=== PATIENT | female | born 1965 | race Caucasian/White ===

== ENCOUNTER 2017-12-14 13:46 | Inpatient (IN) | payer MEDICARE, OTHER ==
[~2017-12-14] VITALS: Ht 165.1 cm; Wt 59.4 kg
[2017-12-14 14:55] LABS: BASOPHILS % (AUTO) 0.3 % (0.0-2.0); EOSINOPHILS % (AUTO) 4.2 % (0.0-6.0); HEMATOCRIT 28 % (33-45); HEMOGLOBIN 8.9 g/dL (11.5-14.8); LYMPHOCYTES # (AUTO) 1.3 /CMM (0.8-4.8); LYMPHOCYTES % (AUTO) 13.5 % (20.0-44.0); MEAN CORPUSCULAR HEMOGLOBIN 30 PG (26.0-33.0); MEAN CORPUSCULAR HGB CONC 32 g/dl (31.0-36.0); MEAN CORPUSCULAR VOLUME 94 fL (82-100); MONOCYTES # (AUTO) 0.9 /CMM (0.1-1.30); MONOCYTES % (AUTO) 9.7 % (2.0-12.0); NEUTROPHILS # (AUTO) 6.8 /CMM (1.8-8.9); NEUTROPHILS % (AUTO) 72.3 % (43.0-81.0); PLATELET COUNT (AUTO) 288 /CMM (150-450); RDW COEFFICIENT OF VARIATION 18.7 (11.5-15.0); RED BLOOD CELL COUNT(AUTO) 2.97 MIL/uL (4.0-5.2); WHITE BLOOD COUNT (AUTO) 9.4 K/uL (4.3-11.0)
[2017-12-14 15:13] LABS: CALCIUM, SERUM 8.8 mg/dL (8.5-10.1)
[2017-12-14 15:24] LABS: MAGNESIUM 2.4 mg/dL (1.8-2.4)
[2017-12-14 15:26] LABS: PHOSPHORUS 13.4 mg/dL (2.5-4.9); POTASSIUM 6.7 mmol/L (3.5-5.1)
[2017-12-14] MEDS ORDERED: SODIUM POLYSTYRENE SULFONATE 15 G/60 ML BOTTLE PO ONE (16:00)
[2017-12-14] MEDS ORDERED: DEXTROSE 50%-WATER 50 ML DISP.SYRIN IV ONE (16:00)
[2017-12-14] MEDS ORDERED: FUROSEMIDE 40 MG/4 ML VIAL IV ONE (16:00)
[2017-12-14] MEDS ORDERED: INSULIN REGULAR, HUMAN 100 UNIT/ML 10 ML VIAL IV ONE (16:00)
[2017-12-14] MEDS ORDERED: SODIUM POLYSTYRENE SULFONATE 15 G/60 ML BOTTLE ONE (16:01)
[2017-12-14] MEDS ORDERED: FUROSEMIDE 20 MG/2 ML VIAL ONE (16:01)
[2017-12-14] MEDS ORDERED: DEXTROSE 50%-WATER 50 ML DISP.SYRIN ONE (16:02)
[2017-12-14] MEDS ORDERED: INSULIN REGULAR, HUMAN 100 UNIT/ML 10 ML VIAL ONE (16:02)
[2017-12-14] MEDS ORDERED: CAPS42.57 TP (17:01)
[2017-12-14] MEDS ORDERED: SODI15OR PO (17:01)
[2017-12-14] MEDS ORDERED: FURO40TA5 PO (17:01)
[2017-12-14] MEDS ORDERED: DOCU250C14 PO (17:01)
[2017-12-14] MEDS ORDERED: LOSA50TA21 PO (17:01)
[2017-12-14] MEDS ORDERED: CALC667C6 PO (17:01)
[2017-12-14] MEDS ORDERED: NUT.237L67 PO (17:01)
[2017-12-14] MEDS ORDERED: CARV12.52 PO (17:01)
[2017-12-14] MEDS ORDERED: SEVE800T8 PO (17:01)
[2017-12-14] MEDS ORDERED: APIX2.5T PO (17:01)
[2017-12-14] MEDS ORDERED: OXYC-128 PO (17:01)
[2017-12-14] MEDS ORDERED: AMLO10TA2 PO (17:01)
[2017-12-14] MEDS ORDERED: CYCL5TAB PO ×2 (17:01)
[2017-12-14] MEDS ORDERED: DARB60VI SQ (17:01)
[2017-12-14] MEDS ORDERED: PANT40TA4 PO (17:01)
[2017-12-14] MEDS ORDERED: SENN-148 PO (17:01)
[2017-12-14] MEDS ORDERED: LEVO25TA7 PO (17:01)
[2017-12-14] MEDS ORDERED: POLY255P2 PO (17:01)
[2017-12-14] MEDS ORDERED: METO50TA16 PO (17:01)
[2017-12-14] MEDS ORDERED: CALC0.253 PO (17:01)
[2017-12-14] MEDS ORDERED: HYDR-4075 PO (17:01)
[2017-12-14] MEDS ORDERED: ACET325T53 PO (17:01)
[2017-12-14] MEDS ORDERED: ACETAMINOPHEN 325 MG TABLET PO PRN (17:30)
[2017-12-14] MEDS ORDERED: DARBEPOETIN ALFA IN POLYSORBAT 60 MCG SQ SCH (17:30)
[2017-12-14] MEDS ORDERED: hydrALAZINE HCL 10 MG TABLET PO PRN (17:30)
[2017-12-14] MEDS: CALCIUM ACETATE 667 MG TABLET PO SCH (17:50)
[2017-12-14] MEDS: oxyCODONE/APAP (5/325 MG) 1 UDTAB TABLET PO PRN (17:51)
[2017-12-14 18:00] VITALS: BP 151/90
[2017-12-14] MEDS ORDERED: METOPROLOL TARTRATE 50 MG TABLET PO SCH (18:00)
[2017-12-14 18:47] VITALS: BP 151/90
[2017-12-14 18:53] VITALS: BP 151/90
[2017-12-14 20:00] VITALS: BP 142/81
[2017-12-14] MEDS: CYCLOBENZAPRINE 10 MG TABLET PO PRN (20:58)
[2017-12-14] MEDS: SODIUM POLYSTYRENE SULFONATE 15 G/60 ML BOTTLE PO SCH (20:58)
[2017-12-14] MEDS: LOSARTAN POTASSIUM 50 MG TABLET PO SCH (20:58)
[2017-12-14] MEDS: APIXABAN 2.5 MG TABLET PO SCH (20:59)
[2017-12-14] MEDS: CAPSAICIN 0.025% CREAM 56.6 GM TUBE TP SCH (20:59)
[2017-12-14] MEDS ORDERED: Medication Not On Formulary EA (Cyclobenzaprine Hcl 10 MG) PO SCH (21:00)
[2017-12-14] MEDS: SENNOSIDES 8.6 MG TABLET PO SCH (21:05)
[2017-12-15] VITALS (7 sets, daily range): BP systolic 137–163; BP diastolic 79–98
[2017-12-15] MEDS: oxyCODONE/APAP (5/325 MG) 1 UDTAB TABLET PO PRN (00:45)
[2017-12-15] MEDS ORDERED: oxyCODONE/APAP (5/325 MG) 1 UDTAB TABLET PO PRN (03:00)
[2017-12-15] MEDS ORDERED: LEVOTHYROXINE SODIUM 25 MCG TABLET PO SCH (07:30)
[2017-12-15] MEDS ORDERED: PANTOPRAZOLE 40 MG TABLET.DR PO SCH (07:30)
[2017-12-15 07:36] LABS: BASOPHILS % (AUTO) 0.3 % (0.0-2.0); EOSINOPHILS % (AUTO) 4.5 % (0.0-6.0); HEMATOCRIT 30 % (33-45); HEMOGLOBIN 9.4 g/dL (11.5-14.8); LYMPHOCYTES # (AUTO) 1.6 /CMM (0.8-4.8); MEAN CORPUSCULAR HEMOGLOBIN 31 PG (26.0-33.0); MEAN CORPUSCULAR HGB CONC 32 g/dl (31.0-36.0); MEAN CORPUSCULAR VOLUME 97 fL (82-100); MONOCYTES # (AUTO) 0.8 /CMM (0.1-1.30); NEUTROPHILS # (AUTO) 6.3 /CMM (1.8-8.9); NEUTROPHILS % (AUTO) 69.2 % (43.0-81.0); PLATELET COUNT (AUTO) 279 /CMM (150-450); RDW COEFFICIENT OF VARIATION 19.6 (11.5-15.0); RED BLOOD CELL COUNT(AUTO) 3.07 MIL/uL (4.0-5.2); WHITE BLOOD COUNT (AUTO) 9.1 K/uL (4.3-11.0)
[2017-12-15 07:45] LABS: CALCIUM, SERUM 8.2 mg/dL (8.5-10.1); POTASSIUM 5.8 mmol/L (3.5-5.1)
[2017-12-15 07:47] LABS: CREATININE 13.8 mg/dL (0.6-1.3)
[2017-12-15] MEDS ORDERED: AMLODIPINE BESYLATE 10 MG TABLET PO SCH (09:00)
[2017-12-15] MEDS ORDERED: DOCUSATE SODIUM 250 MG CAPSULE PO SCH (09:00)
[2017-12-15] MEDS ORDERED: POLYETHYLENE GLYCOL 3350 17 GM POWD.PACK PO SCH (09:00)
[2017-12-15] MEDS ORDERED: SEVELAMER CARBONATE 800 MG TABLET PO SCH (09:00)
[2017-12-15] MEDS ORDERED: CALCITRIOL 0.25 MCG CAPSULE PO SCH (09:00)
[2017-12-15] MEDS: SEVELAMER CARBONATE 800 MG TABLET PO SCH ×3 (09:47→16:20)
[2017-12-15] MEDS: CALCIUM ACETATE 667 MG TABLET PO SCH ×3 (09:49→17:50)
[2017-12-15] MEDS: LOSARTAN POTASSIUM 50 MG TABLET PO SCH ×2 (09:49→21:16)
[2017-12-15] MEDS: CARVEDILOL 12.5 MG TABLET PO SCH ×2 (09:51→16:21)
[2017-12-15] MEDS: FUROSEMIDE 40 MG TABLET PO SCH ×2 (09:52→16:21)
[2017-12-15] MEDS: SODIUM POLYSTYRENE SULFONATE 15 G/60 ML BOTTLE PO SCH ×2 (09:52→21:18)
[2017-12-15] MEDS: NEPRO VAN 237 ML CAN PO SCH ×2 (09:55→17:00)
[2017-12-15] MEDS: CAPSAICIN 0.025% CREAM 56.6 GM TUBE TP SCH ×2 (10:22→21:19)
[2017-12-15] MEDS: APIXABAN 2.5 MG TABLET PO SCH ×2 (10:23→21:17)
[2017-12-15] MEDS ORDERED: VANCOMYCIN 500 MG in IV D5W 100 ML IV PRN (10:30)
[2017-12-15] MEDS ORDERED: VANCOMYCIN 1 GM in IV D5W 250 ML IV ONE (10:30)
[2017-12-15] MEDS ORDERED: KETOROLAC TROMETHAMINE INJ 30 MG/ML VIAL IV PRN (11:30)
[2017-12-15] MEDS: CYCLOBENZAPRINE 10 MG TABLET PO PRN (13:20)
[2017-12-15] MEDS ORDERED: FEE PK DOSING 1 MIN EA MC ONE (13:40)
[2017-12-15] MEDS: ONDANSETRON HCL/PF 4 MG/2 ML VIAL IVP PRN ×2 (14:09→20:10)
[2017-12-15] MEDS: MORPHINE SULFATE INJ 4 MG/ML DISP.SYRIN IV PRN ×2 (14:10→20:09)
[2017-12-15] MEDS ORDERED: LORAZEPAM INJ 2 MG/ML VIAL IV ONE ×2 (17:30→22:00)
[2017-12-15] MEDS ORDERED: SODIUM POLYSTYRENE SULFONATE 15 G/60 ML BOTTLE ONE (21:15)
[2017-12-15] MEDS: SENNOSIDES 8.6 MG TABLET PO SCH (21:17)
== END 2017-12-15 23:10 | disposition short-term general hospital (02) | DRG 640 ==
LOC: ER 13:53 → TELE1 16:20
PROVIDERS: ADMIT Internal Medicine Nephrology; ATTEND Internal Medicine Nephrology
PROC: 3E1M39Z Irrigation of Peritoneal Cavity using Dialysate, Percutaneous Approach (ICD-10-PCS; principal; 2017-12-14)
DX: E87.5 Hyperkalemia (principal); N18.6 End stage renal disease; I12.0 Hypertensive chronic kidney disease with stage 5 chronic kidney disease or end stage renal disease; M46.22 Osteomyelitis of vertebra, cervical region; Q61.3 Polycystic kidney, unspecified; D63.8 Anemia in other chronic diseases classified elsewhere; Z99.2 Dependence on renal dialysis; Z86.718 Personal history of other venous thrombosis and embolism; Z91.15 Patient's noncompliance with renal dialysis; M48.02 Spinal stenosis, cervical region; G89.29 Other chronic pain; Z41.8 Encounter for other procedures for purposes other than remedying health state; M46.42 Discitis, unspecified, cervical region
CPT/HCPCS: 36415; 70490-TC; 70547-TC; 80048-TC; 80202-TC; 83735-TC; 84100-TC; 85025-TC; 87081-TC; 90935-TC; A4606; J1815; J1940; J2060; J2270; J2405; J3370; J7060; Z7610

== ENCOUNTER 2017-12-24 11:52 | Inpatient (IN) | payer MEDICARE, OTHER ==
[~2017-12-24] VITALS: Ht 165.1 cm; Wt 70.3 kg
[~2017-12-24 11:52] MED LIST: ACET325T53 PO; AMLO10TA2 PO; APIX2.5T PO; CALC0.253 PO; CALC667C6 PO; CAPS42.57 TP; CARV12.52 PO; CYCL5TAB PO; DARB60VI SQ; DOCU250C14 PO; FURO40TA5 PO; HYDR-4075 PO; LEVO25TA7 PO; LOSA50TA21 PO; NUT.237L67 PO; OXYC-128 PO; PANT40TA4 PO; POLY255P2 PO; SENN-148 PO; SEVE800T8 PO; SODI15OR PO
[2017-12-24 16:30] VITALS: BP 122/83
--- NOTE | 2017-12-24 16:30 | NUR ---
ADMISSION NOTES PT RECEIVED VIA GURNEY FROM [facility], STATUS POST CERVICAL LAMINECTOMY, A/O X4, BREATHING IS EVEN AND UNLABORED, NO S/S OF PAIN OR DISTRESS, PT IS AMBULATORY, HAS NECK IMMOBILIZER, LEFT FEMORAL PICC LINE INTACT AND PATENT WITH NO REDNESS OR INFILTRATION, WILL MAKE DR. PAVON AWARE OF PATIENT'S ARRIVAL, MED [facility] NURSE AWARE, WILL CONTINUE TO CARRY OUT ADMISSION ORDERS AND MONITOR.
[2017-12-24] MEDS ORDERED: ONDA4VIA30 IVP (17:16)
[2017-12-24] MEDS ORDERED: HYDR-548 PO (17:16)
[2017-12-24] MEDS ORDERED: CLON0.1T PO (17:16)
[2017-12-24] MEDS ORDERED: HYDR100T27 PO (17:16)
[2017-12-24] MEDS ORDERED: CEFT2VIA5 IV (17:16)
[2017-12-24] MEDS ORDERED: HYDR-552 PO (17:16)
[2017-12-24] MEDS ORDERED: VANC1VIA2 IV (17:16)
[2017-12-24] MEDS ORDERED: IV NS 0.9% 1,000 ML IV PRN (17:46)
[2017-12-24] MEDS ORDERED: HYDROCODONE/APAP 5/325MG 1 EACH TABLET PO PRN ×2 (18:00)
[2017-12-24] MEDS ORDERED: VANCOMYCIN 1 GM VIAL IV SCH (18:00)
[2017-12-24] MEDS ORDERED: HYDROCODONE/APAP 10/325MG 1 EA TABLET PO PRN (18:00)
[2017-12-24] MEDS ORDERED: ZOLPIDEM TARTRATE 5 MG TABLET PO PRN (18:00)
[2017-12-24] MEDS ORDERED: MAG HYDROX/AL HYDROX/SIMETH 30 ML UDC PO PRN (18:00)
[2017-12-24] MEDS ORDERED: MAGNESIUM HYDROXIDE 30 ML UDC PO PRN (18:00)
[2017-12-24] MEDS ORDERED: CLONIDINE HCL 0.1 MG TABLET PO PRN (18:00)
[2017-12-24] MEDS ORDERED: ONDANSETRON HCL/PF 4 MG/2 ML VIAL IVP PRN ×2 (18:00)
[2017-12-24] MEDS: CALCIUM ACETATE 667 MG TABLET PO SCH (18:00)
[2017-12-24] MEDS ORDERED: ACETAMINOPHEN 325 MG TABLET PO PRN ×2 (18:00)
[2017-12-24] MEDS ORDERED: Z GUARD REMEDY 2 OZ OINT TP PRN (18:00)
[2017-12-24 18:30] LABS: HEMATOCRIT 26 % (33-45); HEMOGLOBIN 8.2 g/dL (11.5-14.8); LYMPHOCYTES # (AUTO) 1.4 /CMM (0.8-4.8); LYMPHOCYTES % (AUTO) 9.5 % (20.0-44.0); MEAN CORPUSCULAR HEMOGLOBIN 31 PG (26.0-33.0); MEAN CORPUSCULAR HGB CONC 32 g/dl (31.0-36.0); MEAN CORPUSCULAR VOLUME 96 fL (82-100); MONOCYTES # (AUTO) 1.5 /CMM (0.1-1.30); MONOCYTES % (AUTO) 9.9 % (2.0-12.0); NEUTROPHILS # (AUTO) 11.7 /CMM (1.8-8.9); NEUTROPHILS % (AUTO) 79.6 % (43.0-81.0); PLATELET COUNT (AUTO) 338 /CMM (150-450); RDW COEFFICIENT OF VARIATION 18.1 (11.5-15.0); RED BLOOD CELL COUNT(AUTO) 2.67 MIL/uL (4.0-5.2); WHITE BLOOD COUNT (AUTO) 14.7 K/uL (4.3-11.0)
[2017-12-24 18:42] LABS: ALANINE AMINOTRANSFERASE < 6 U/L (12-78); ALBUMIN 2.2 g/dL (3.4-5.0); ALKALINE PHOSPHATASE 85 U/L (46-116); ASPARTATE AMINOTRANSFERASE 16 U/L (15-37); BILIRUBIN,TOTAL 0.3 mg/dL (0.2-1.0); CALCIUM, SERUM 8.7 mg/dL (8.5-10.1); CARBON DIOXIDE 29 mmol/L (21-32); CHLORIDE 96 mmol/L (98-107); GLUCOSE 88 mg/dL (74-106); POTASSIUM 4.4 mmol/L (3.5-5.1); SODIUM SERUM 136 mmol/L (136-145); TOTAL PROTEIN, SERUM 6.2 g/dL (6.4-8.2); UREA NITROGEN, BLOOD 57 mg/dL (7-18)
[2017-12-24 18:46] LABS: CREATININE 8.7 mg/dL (0.6-1.3)
--- NOTE | 2017-12-24 18:46 | NUR ---
RN NOTES/ID SEEN AND EXAMINED BY VIVIEN FROM ID, PER VIVIEN PLEASE CALL IDA K[facility] TO OBTAIN CULTURE RESULTS, WILL CONTINUE TO MONITOR
--- NOTE | 2017-12-24 18:48 | NUR ---
RN NOTES/CRITICAL LAB MADE DR. PAVON AWARE OF CREATININE LEVEL 8.7 AND CURRENT MEDICATION RECON, DR. PAVON WITH NEW ORDERS WILL CONTINUE TO CARRY OUT ADMITTING ORDERS
--- NOTE | 2017-12-24 18:55 | NUR ---
RN CLOSING NOTES PT AWAKE ALERT AND VERBALLY RESPONSIVE, STATUS POST CERVICAL LAMINECTOMY, A/O X4, RESPIRATIONS EVEN AND UNLABORED, NO S/S OF PAIN OR DISTRESS, PT IS AMBULATORY, HAS NECK IMMOBILIZER, LEFT FEMORAL PICC LINE INTACT AND PATENT WITH NO REDNESS OR INFILTRATION, RUNNING NS ORDERED TOLERATED WELL. WILL CONTINUE TO CARRY OUT ADMISSION ORDERS AND MONITOR.ORIENTED TO ROOM AND UNIT, CALL LIGHT WITHIN EASY REACH,WILL CONTINUE TO MONITOR AND ENDORSE TO NEXT SHIFT FOR CONTINUITY OF CARE
--- NOTE | 2017-12-24 19:19 | NUR ---
RN NOTES ENDORSED TO NEXT SHIFT, FOR FEMORAL PICC LINE DRESSING CHANGE AND MRSA SWAB FOR CONTINUITY OF CARE
--- NOTE | 2017-12-24 19:21 | NUR ---
ASTRONAUT [facility] SPECIALIST OPENING NOTE RECEIVE PATIENT AWAKE IN BED, A/O X 3, NO SOB OR DISTRESS NOTED, CALL LIGHT WITHIN REACH. SAFETY MEASURES IMPLEMENTED. WILL CONTINUE TO MONITOR THROUGHOUT SHIFT.
[2017-12-24 20:00] VITALS: BP 106/73
[2017-12-24] MEDS: LOSARTAN POTASSIUM 50 MG TABLET PO SCH (20:19)
[2017-12-24] MEDS: CEFTRIAXONE 1 G in IV D5W 50 ML IV SCH (20:23)
[2017-12-24] MEDS: APIXABAN 2.5 MG TABLET PO SCH (20:23)
[2017-12-24] MEDS: POLYETHYLENE GLYCOL 3350 17 GM POWD.PACK PO SCH (20:23)
[2017-12-24] MEDS ORDERED: VANCOMYCIN 1 GM in IV D5W 250 ML IV ONE (21:00)
[2017-12-24] MEDS: SENNOSIDES 8.6 MG TABLET PO SCH (21:13)
--- NOTE | 2017-12-24 21:30 | NUR ---
CHANNEL MACHINE OPERATOR NOTES CHANGED DRESSING TO THE L FEMORAL PICC STERILE TECHNIQUE TOLERATED WELL.
[2017-12-25] VITALS: BP 130/87
--- NOTE | 2017-12-25 00:08 | NUR ---
TELE NOTES PAGED HOSPITALIST SPOKE TO ARAVIND GRANT RELAYED PT REQUESTING IS SHE COULD HAVE MORPHINE IVP PER PT SHE DOESN'T GET ANY RELIEF WITH NORCO, PER ARAVIND ORDERED TO DC NORCO 10/325MG PO AND CHANGE TO MORPHINE 4 MG IVP Q6 PRN READ BACK AND VERIFIED ORDERS NOTED AND CARRIED OUT
[2017-12-25] MEDS: MORPHINE SULFATE INJ 4 MG/ML DISP.SYRIN IV PRN ×2 (00:17→06:20)
--- NOTE | 2017-12-25 00:25 | NUR ---
MS RN NOTES UPON ADMINISTERING PAIN MEDICATION TO THE PT, PT SUDDENLY CHANGED MIND PER PT SHE'S NOT IN PAIN ANYMORE PT WANTS ME TO RE-DO HANDWASHING AGAIN IN HER WAY OF STYLE. PT BECAME AGGRESSIVE AND WANTS NOT TO BE BOTHERED ANYMORE. CHARGE NURSE AWARE
[2017-12-25 04:00] VITALS: BP 142/85
--- NOTE | 2017-12-25 06:11 | NUR ---
MS RN CLOSING NOTES PT AWAKE IN BED, STABLE, TOLERATING ROOM AIR 98%, NOT IN DISTRESS. RESPIRATION EVEN AND UNLABORED. KEPT CLEAN AND DRY AND COMFORTABLE, ALL NURSING CARE RENDERED. NEEDS ATTENDED AND ANTICIPATED. ON LOW BED AT ALL TIMES TO ENSURE SAFETY. SAFE HAZARD FREE ENVIRONMENT PROVIDED. CALL LIGHT WITHIN EASY TO REACH. WILL ENDORSE NEXT SHIFT CONTINUITY OF CARE. Addendum: 12/25/17 at 0612 by ROB TORRES RN 94'S
[2017-12-25 06:34] LABS: BASOPHILS % (AUTO) 0.2 % (0.0-2.0); EOSINOPHILS % (AUTO) 2.4 % (0.0-6.0); HEMATOCRIT 29 % (33-45); HEMOGLOBIN 9.1 g/dL (11.5-14.8); LYMPHOCYTES # (AUTO) 1.6 /CMM (0.8-4.8); LYMPHOCYTES % (AUTO) 12.2 % (20.0-44.0); MEAN CORPUSCULAR HEMOGLOBIN 31 PG (26.0-33.0); MEAN CORPUSCULAR HGB CONC 32 g/dl (31.0-36.0); MEAN CORPUSCULAR VOLUME 96 fL (82-100); MONOCYTES # (AUTO) 1.5 /CMM (0.1-1.30); NEUTROPHILS # (AUTO) 9.8 /CMM (1.8-8.9); NEUTROPHILS % (AUTO) 74.2 % (43.0-81.0); PLATELET COUNT (AUTO) 376 /CMM (150-450); RDW COEFFICIENT OF VARIATION 18.4 (11.5-15.0); RED BLOOD CELL COUNT(AUTO) 2.97 MIL/uL (4.0-5.2); WHITE BLOOD COUNT (AUTO) 13.3 K/uL (4.3-11.0)
[2017-12-25 06:43] LABS: CALCIUM, SERUM 8.8 mg/dL (8.5-10.1); MAGNESIUM 1.9 mg/dL (1.8-2.4); PHOSPHORUS 6.7 mg/dL (2.5-4.9); POTASSIUM 4.4 mmol/L (3.5-5.1)
[2017-12-25 06:44] LABS: CREATININE 8.9 mg/dL (0.6-1.3)
--- NOTE | 2017-12-25 07:25 | NUR ---
RN OPENING NOTES PT AWAKE ALERT AND VERBALLY RESPONSIVE, STATUS POST CERVICAL LAMINECTOMY, A/O X4, RESPIRATIONS EVEN AND UNLABORED, NO S/S OF PAIN OR DISTRESS, PT IS AMBULATORY, HAS NECK IMMOBILIZER, LEFT FEMORAL PICC LINE INTACT AND PATENT WITH NO REDNESS OR INFILTRATION, RUNNING NS ORDERED TOLERATED WELL. CALL LIGHT WITHIN EASY REACH,WILL CONTINUE TO MONITOR
[2017-12-25] MEDS: PANTOPRAZOLE 40 MG TABLET.DR PO SCH (07:30)
[2017-12-25] MEDS: LEVOTHYROXINE SODIUM 25 MCG TABLET PO SCH (07:30)
[2017-12-25 08:00] VITALS: BP 134/77
--- NOTE | 2017-12-25 08:15 | NUR ---
RN NOTES OFFERED ROUTINE MEDICATIONS TO PATIENT, PATIENT STATING" I NEED SOMETHING FOR MY THROAT, I HAVE BEEN WAITING, YOU HAVE NOT GOT IT" RELAYED TO PATIENT WILL OBTAIN PRN ORDERS NO ORDERS AT THIS TIME. PATIENT CONTINUES AND ASKS TO SPEAK TO DOCTOR AND FOLDING MACHINE FEEDER, INFORMED PT THAT NURSE WILL COMMUNICATE WITH INTERDISCIPLINARY TEAM. PATIENT NOTED CRYING AND CONTINUES TO STATE 'I NEED SOMETHING FOR MY THROAT, I HAVE BEEN WAITING, YOU HAVE NOT GOT IT" WILL CONTINUE TO MONITOR, ASSIST AND COMMUNICATE WITH IDT FOR CONTINUITY OF CARE
[2017-12-25] MEDS: CARVEDILOL 12.5 MG TABLET PO SCH ×2 (09:00→18:05)
[2017-12-25] MEDS: FUROSEMIDE 40 MG TABLET PO SCH ×2 (09:00→18:04)
[2017-12-25] MEDS: AMLODIPINE BESYLATE 10 MG TABLET PO SCH (09:00)
[2017-12-25] MEDS: POLYETHYLENE GLYCOL 3350 17 GM POWD.PACK PO SCH (09:00)
[2017-12-25] MEDS: SEVELAMER CARBONATE 800 MG TABLET PO SCH ×3 (09:00→17:00)
[2017-12-25] MEDS: CYCLOBENZAPRINE 10 MG TABLET PO SCH ×3 (09:00→18:04)
[2017-12-25] MEDS: CALCITRIOL 0.25 MCG CAPSULE PO SCH (09:00)
[2017-12-25] MEDS: DOCUSATE SODIUM 250 MG CAPSULE PO SCH (09:00)
[2017-12-25] MEDS: LOSARTAN POTASSIUM 50 MG TABLET PO SCH ×2 (09:00→21:08)
[2017-12-25] MEDS ORDERED: Medication Not On Formulary EA (Cyclobenzaprine Hcl 10 MG) PO SCH (09:00)
[2017-12-25] MEDS: hydrALAZINE HCL 50 MG TABLET PO SCH ×3 (09:00→18:05)
[2017-12-25] MEDS ORDERED: Medication Not On Formulary EA (Ceftriaxone Sodium (Ceftriaxone) 2 GM) IV SCH (09:00)
[2017-12-25] MEDS: APIXABAN 2.5 MG TABLET PO SCH ×2 (09:00→21:08)
[2017-12-25] MEDS: CALCIUM ACETATE 667 MG TABLET PO SCH ×3 (09:00→18:05)
[2017-12-25] MEDS: MENTHOL/CETYLPYRD (CEPACOL) 1 LOZ LOZENGE PO PRN (10:07)
--- NOTE | 2017-12-25 10:20 | NUR ---
RN NOTES/ REFUSAL OF MEDICATIONS OBTAINED ORDER FOR DILAUDID AND THROAT LOZENGES. OFFERED X5 ALL ROUTINE MEDICATIONS ORDERED BY MD EXPLAINED RISKS OF NOT TAKING MEDICATIONS PT CONTINUES TO REFUSE AND STATE " YOU ARE NOT HELPING, I NEED TO GET OUT OF HERE, IM GOING TO LEAVE AMA, THE DOCTOR NEEDS TO COME TALK TO ME THIS IS NOT RIGHT" PT WITH AGITATION AND REFUSING MEDICATIONS, RELAYED TO MD AND MADE MD AWARE, WILL MAKE ROUNDS
--- NOTE | 2017-12-25 11:41 | NUR ---
RN NOTES RELAYED PATIENTS STATUS AND REFUSAL OF MEDICATIONS TO DR. SANTIAGO DE LEON WILL ASSESS AND TALK TO PT. ATTEMPTED TO REVIEW AND ASK PT ABOUT NON FORMULARY MEDS REQUESTED BY PHARMACY AND PT REFUSES TO RELAY INFORMATION
[2017-12-25] MEDS ORDERED: BISACODYL (5 MG) 5 MG TABLET.DR PO PRN (13:00)
[2017-12-25] MEDS ORDERED: HYDROCODONE/APAP 10/325MG 1 EA TABLET PO PRN (13:00)
--- NOTE | 2017-12-25 13:17 | NUR ---
RN NOTES/ PT NON COMPLIANT RN IN ROOM TO TAKE BLOOD PRESSURE AND ASSESS PT, PT CONTINUES TO STATE "NO ONE IS LEAVING, I AM GOING TO LEAVE MY SON WILL PICK ME UP, NO ONE IS LISTENING, THIS IS NOT WHAT I NEED" DR. HENDERSON IN UNIT, RN RELAYED INFORMATION TO DR. HENDERSON, PER MD PT MAY LEAVE AMA IF PERSISTS, PT REFUSING ALL MEDICATIONS, MEALS AND BP TO BE TAKEN REPEATS SAME STATEMENTS WILL CONTINUE TO ASSIST AND MONITOR
[2017-12-25] MEDS: oxyCODONE HCL SR 20MG TAB.SR.12H PO SCH (14:10)
--- NOTE | 2017-12-25 15:27 | NUR ---
RN NOTES PT REFUSING MEDICATION EXPLAINED RISKS AND BENEFIT OF MEDICATIONS MD AWARE WILL CONTINUE TO MONITOR
[2017-12-25 15:29] VITALS: BP 153/80
--- NOTE | 2017-12-25 18:25 | NUR ---
RN NOTES/PERITONEAL DIALYSIS PT STARTED OWN PERITONEAL DIALYSIS AT 1825 NO S/S OF DISTRESS NOTED, HD NURSE ASSISTED WITH SUPPLIES, WILL ENDORSE TO NEXT SHIFT FOR CONTINUITY OF CARE AND REASSESSMENT
--- NOTE | 2017-12-25 18:52 | NUR ---
RN NOTES PATIENT WITH COMPLAINT OF DIFFICULTY SWALLOWING, REPORTS PAIN WHEN SWALLOWING PT S/P LAMINECTOMY TO HAVE ST EVAL, THICKENER USED FOR FLUIDS OFFERED SNACKS AND ADMINISTERED MEDICATIONS, WILL CONTINUE TO MONITOR AND ASSESS
--- NOTE | 2017-12-25 18:54 | NUR ---
RN CLOSING NOTES PT AWAKE ALERT AND VERBALLY RESPONSIVE, STATUS POST CERVICAL LAMINECTOMY, A/O X4, RESPIRATIONS EVEN AND UNLABORED, NO S/S OF PAIN OR DISTRESS, PT IS AMBULATORY, HAS NECK IMMOBILIZER, LEFT FEMORAL PICC LINE INTACT AND PATENT WITH NO REDNESS OR INFILTRATION. CALL LIGHT WITHIN EASY REACH,WILL CONTINUE TO MONITOR. PT CURRENTLY DOING OWN PERITONEAL DIALYSIS WILL ENDORSE TO NEXT SHIFT FOR CONTINUITY OF CARE AND REASSESSMENT
--- NOTE | 2017-12-25 19:10 | NUR ---
MS DEL ROSARIO INITIAL NOTES Received patient sitting on bed with peritoneal dialysis on going. self administered by the patient. No s/s of discomfort noted. Neck immobilizer placed properly. PICC line L femoral patent, dressing intact, clean and dry, no s/s of infection noted. A/O x4, ambulatory independently. Will monitor accordingly.
[2017-12-25] MEDS: CEFTRIAXONE 1 G in IV D5W 50 ML IV SCH (19:34)
--- NOTE | 2017-12-25 19:45 | NUR ---
MS RN NOTES Patient done with her peritoneal dialysis. Attached IVF NS 75ml/hr as ordered. Strictly observed sterile technique. Administered due IV ATB. Patient remained comfortably sitting on bed doing kallie.
[2017-12-25 20:00] VITALS: BP 131/78
--- NOTE | 2017-12-25 20:15 | NUR ---
MS RN NOTES Current IV ATB done. DC IVF. No ASE noted at this time. Will continue to monitor.
--- NOTE | 2017-12-25 20:20 | NUR ---
MS RN NOTES exhibit technician came in to draw blood sample for ordered test. Offered options to patient: to draw blood through PICC line or the lab courier will draw blood through needle. Patient chose the latter. Tolerated the procedure well.
[2017-12-25] MEDS: SENNOSIDES 8.6 MG TABLET PO SCH (21:08)
[2017-12-25] MEDS: HYDROMORPHONE INJ 2 MG/ML DISP.SYRIN IV PRN (22:27)
[2017-12-26] MEDS: oxyCODONE HCL SR 20MG TAB.SR.12H PO SCH ×3 (01:39→15:30)
--- NOTE | 2017-12-26 06:35 | NUR ---
MS RN CLOSING NOTES Patient asleep on right side lying position. L femoral PICC line patent, SL, with clean, dry, intact dressing. Patient had peritoneal dialysis by herself, infuse 200ML, output 1800ML clear, jose ramon fluid. Observed strict sterile technique in all procedures done to patient. All due meds given, all needs attended. Medicated for pain as ordered. Afebrile the whole shift, no new complaints made. Endorsed to the next shift.
[2017-12-26 07:13] LABS: BASOPHILS % (AUTO) 0.3 % (0.0-2.0); EOSINOPHILS % (AUTO) 2.1 % (0.0-6.0); HEMATOCRIT 27 % (33-45); HEMOGLOBIN 8.8 g/dL (11.5-14.8); LYMPHOCYTES # (AUTO) 1.6 /CMM (0.8-4.8); LYMPHOCYTES % (AUTO) 14.6 % (20.0-44.0); MEAN CORPUSCULAR HEMOGLOBIN 31 PG (26.0-33.0); MEAN CORPUSCULAR HGB CONC 32 g/dl (31.0-36.0); MEAN CORPUSCULAR VOLUME 95 fL (82-100); MONOCYTES # (AUTO) 1.3 /CMM (0.1-1.30); MONOCYTES % (AUTO) 11.7 % (2.0-12.0); NEUTROPHILS # (AUTO) 7.8 /CMM (1.8-8.9); NEUTROPHILS % (AUTO) 71.3 % (43.0-81.0); PLATELET COUNT (AUTO) 368 /CMM (150-450); RDW COEFFICIENT OF VARIATION 17.4 (11.5-15.0); RED BLOOD CELL COUNT(AUTO) 2.86 MIL/uL (4.0-5.2)
[2017-12-26 07:29] LABS: CALCIUM, SERUM 8.8 mg/dL (8.5-10.1); CREATININE 10.5 mg/dL (0.6-1.3); PHOSPHORUS 7.6 mg/dL (2.5-4.9); POTASSIUM 4.4 mmol/L (3.5-5.1)
[2017-12-26] MEDS: PANTOPRAZOLE 40 MG TABLET.DR PO SCH (07:30)
[2017-12-26] MEDS: LEVOTHYROXINE SODIUM 25 MCG TABLET PO SCH (07:30)
[2017-12-26 08:00] VITALS: BP 156/87
[2017-12-26] MEDS: CARVEDILOL 12.5 MG TABLET PO SCH ×2 (09:00→17:00)
[2017-12-26] MEDS: POLYETHYLENE GLYCOL 3350 17 GM POWD.PACK PO SCH (09:00)
[2017-12-26] MEDS: hydrALAZINE HCL 50 MG TABLET PO SCH ×3 (09:12→17:00)
[2017-12-26] MEDS: CYCLOBENZAPRINE 10 MG TABLET PO SCH ×3 (09:13→17:35)
[2017-12-26] MEDS: FUROSEMIDE 40 MG TABLET PO SCH ×2 (09:13→17:39)
[2017-12-26] MEDS: LOSARTAN POTASSIUM 50 MG TABLET PO SCH ×2 (09:13→21:42)
[2017-12-26] MEDS: AMLODIPINE BESYLATE 10 MG TABLET PO SCH (09:13)
[2017-12-26] MEDS: SEVELAMER CARBONATE 800 MG TABLET PO SCH (09:13)
[2017-12-26] MEDS: DOCUSATE SODIUM 250 MG CAPSULE PO SCH (09:13)
[2017-12-26] MEDS: CALCIUM ACETATE 667 MG TABLET PO SCH ×3 (09:13→17:35)
[2017-12-26] MEDS: APIXABAN 2.5 MG TABLET PO SCH ×2 (09:14→21:42)
[2017-12-26] MEDS: CALCITRIOL 0.25 MCG CAPSULE PO SCH (09:14)
[2017-12-26] MEDS: MENTHOL/CETYLPYRD (CEPACOL) 1 LOZ LOZENGE PO PRN ×2 (09:15→15:30)
--- NOTE | 2017-12-26 10:09 | NUR ---
Social service consult requested by Med Surg BRISEIAD Jimenez for possible homelessness. Pt. is a 52 year old female who was admitted to [facility] for End Stage Renal Disease. SW met with pt. bedside. Pt. is alert and oriented x 4. Pt. is well groomed and cooperative with SW during the assessment. Pt. does not give eye contact while answering the questions. Pt. states she resides at [facility] located at [address] [place] [address] and would like to be discharged back there since her belongings are there as well. Pt. states she has been in and out of hospitals for the past six months. Pt. recently had cervical spine surgery at [facility]. Pt. is on perithelial dialysis. Her son Zeus is her emergency contact and can be reached at . Pt. does not want her son to be contacted at this time. Pt. denies drug and alcohol use. Pt. denies any psychiatric history or diagnosis. No other social service needs are requested at this time. SW is available if needed. WOODY updated CARIN Jason regarding pt's discharge plan.
[2017-12-26] MEDS ORDERED: EPOETIN ALFA (10,000 UNIT) 10,000 UNIT/ML VIAL SQ ONE (13:30)
[2017-12-26] MEDS: SEVELAMER CARBONATE 0.8 GM POWD.PACK GT SCH ×2 (13:36→17:35)
[2017-12-26] MEDS ORDERED: FEE PK DOSING 1 MIN EA MC ONE (13:53)
[2017-12-26] MEDS ORDERED: VANCOMYCIN 500 MG in IV D5W 100 ML IV PRN (14:30)
[2017-12-26 16:00] VITALS: BP 128/68
[2017-12-26] MEDS: LACTOBACILLUS RHAMNOSUS GG 1 EACH CAP.SPRINK PO SCH (17:35)
[2017-12-26] MEDS ORDERED: DARBEPOETIN ALFA IN POLYSORBAT 60 MCG SQ SCH (18:00)
--- NOTE | 2017-12-26 18:26 | NUR ---
RN CLOSING NOTES PT AWAKE ALERT AND VERBALLY RESPONSIVE, STATUS POST CERVICAL LAMINECTOMY, A/O X4, RESPIRATIONS EVEN AND UNLABORED, NO S/S OF PAIN OR DISTRESS, PT IS AMBULATORY, HAS NECK IMMOBILIZER, LEFT FEMORAL PICC LINE INTACT AND PATENT WITH NO REDNESS OR INFILTRATION, RUNNING NS ORDERED TOLERATED WELL. CALL LIGHT WITHIN EASY REACH,WILL CONTINUE TO MONITOR AND ENDORSE TO NEXT SHIFT FOR CONTINUITY OF CARE, PT PERFORMED OWN PERITONEAL DIALYSIS SUPPLIES WERE PROVIDED , STILL ONGOING WILL ENDORSE TO NEXT SHIFT FOR FURTHER ASSESSMENT
--- NOTE | 2017-12-26 19:15 | NUR ---
rn ms opening notes received patient in room walking , awake alert and oriented x4, noted patient has stopped performing own peritoneal dialysis and per patient is done at this time noted bag of 1500ml , 300 ml left in bag total input 1200. output noted 1700 clear yellow color. per patient will perform one more treatment of peritoneal dialysis at 10pm. will continue to monitor. patient is ambulatory noted with s/p laminectomy incisions on posterior neck and right side of anterior neck. posterior neck noted dry, no drainage at this time and anterior neck incision noted with clean and dry intact steri strips with dressing, noted with left femoral picc line with 2 lumens. dressing remains intact, able to flush patent, no redness , no irritation present. oriented to staff and call light, safety precautions in place, low bed and locked,patient stated she was hungry, snack provided, jello,pudding and apple sauce given, all needs attended at this time will continue to monitor. unable to given atb this time enma continue to monitor when patient in bed.
[2017-12-26 20:00] VITALS: BP 126/96
[2017-12-26] MEDS: HYDROMORPHONE INJ 2 MG/ML DISP.SYRIN IV PRN (20:26)
--- NOTE | 2017-12-26 20:26 | NUR ---
rn ms notes patient complaint of pain 10/10 generalized. requesting for dilaudid. vital signs assessed noted within normal range 126/96,87,18,97.6,99% RA. dilaudid prn given will continue to monitor effectiveness.
[2017-12-26] MEDS: CEFTRIAXONE 1 G in IV D5W 50 ML IV SCH (21:28)
--- NOTE | 2017-12-26 21:28 | NUR ---
rn notes noted patient is calm in bed at this time, made aware of iv antibiotic, will give as ordered now.
[2017-12-26] MEDS: SENNOSIDES 8.6 MG TABLET PO SCH (21:42)
--- NOTE | 2017-12-26 22:00 | NUR ---
rn ms notes patient did not perform Peritoneal dialysis wants to sleep at this time.
[2017-12-27] MEDS: oxyCODONE HCL SR 20MG TAB.SR.12H PO SCH ×2 (02:57→14:35)
--- NOTE | 2017-12-27 02:57 | NUR ---
rn ms notes vital signs assessed prior to administration of oxycontin noted wnl 119/75,97,18,99% ra
--- NOTE | 2017-12-27 03:35 | NUR ---
rn ms notes patient complaint of indigestion feeling heart burn maalox offered prn given as ordered will continue to monitor.
[2017-12-27 06:28] LABS: BASOPHILS % (AUTO) 0.2 % (0.0-2.0); EOSINOPHILS % (AUTO) 2.4 % (0.0-6.0); HEMATOCRIT 29 % (33-45); HEMOGLOBIN 9.1 g/dL (11.5-14.8); LYMPHOCYTES # (AUTO) 1.4 /CMM (0.8-4.8); LYMPHOCYTES % (AUTO) 10.8 % (20.0-44.0); MEAN CORPUSCULAR HEMOGLOBIN 31 PG (26.0-33.0); MEAN CORPUSCULAR HGB CONC 32 g/dl (31.0-36.0); MEAN CORPUSCULAR VOLUME 96 fL (82-100); MONOCYTES # (AUTO) 1.4 /CMM (0.1-1.30); MONOCYTES % (AUTO) 10.9 % (2.0-12.0); NEUTROPHILS # (AUTO) 9.6 /CMM (1.8-8.9); NEUTROPHILS % (AUTO) 75.7 % (43.0-81.0); PLATELET COUNT (AUTO) 393 /CMM (150-450); RDW COEFFICIENT OF VARIATION 17.7 (11.5-15.0); RED BLOOD CELL COUNT(AUTO) 2.97 MIL/uL (4.0-5.2); WHITE BLOOD COUNT (AUTO) 12.7 K/uL (4.3-11.0)
[2017-12-27 06:38] LABS: CALCIUM, SERUM 9.6 mg/dL (8.5-10.1); PHOSPHORUS 7.5 mg/dL (2.5-4.9); POTASSIUM 4.8 mmol/L (3.5-5.1)
[2017-12-27 06:46] LABS: CREATININE 10.2 mg/dL (0.6-1.3)
--- NOTE | 2017-12-27 07:10 | NUR ---
RN MS CLOSING NOTES PATIENT IN ROOM AWAKE, ALERT AND ORIENTED X 4 , ABLE TO MAKE NEEDS KNOWN, DENIES ANY PAIN OR DISCOMFORT AT THIS TIME, RESPIRATIONS EVEN AND UNLABORED WITH EQUAL RISE AND FALL OF CHEST, PATIENT IS AMBULATORY. ALL NEEDS ATTENDED AT THIS TIME, DRESSING TO S/P SURGICAL SITE CLEAN AND INTACT. SAFETY PRECAUTIONS IN PLACE CALL LIGHT KEPT WITHIN REACH, ALL NEEDS ATTENDED NO CHANGES THROUGHOUT SHIFT. NEEDS WILL CONTINUE TO MONITOR AND ENDORSE TO NEXT SHIFT.
--- NOTE | 2017-12-27 07:30 | NUR ---
RN MS NOTES PT AWAKE, WALKING INSIDE HER ROOM, ALERT AND ABLE TO MAKE NEEDS KNOWN, NO COMPLAINT OF PAIN, RESPIRATIONS NORMAL, REQUESTING FOR A FRUIT CUP, EXPLAINED TO PT OF THE RISK FOR ASPIRATION, VERBALIZED UNDERSTANDING, CALL LIGHT WITHIN REACH, NEEDS ATTENDED.
[2017-12-27 08:05] VITALS: BP 134/94
[2017-12-27] MEDS: DOCUSATE SODIUM 250 MG CAPSULE PO SCH (08:26)
[2017-12-27] MEDS: SEVELAMER CARBONATE 0.8 GM POWD.PACK GT SCH ×3 (08:26→17:10)
[2017-12-27] MEDS: CARVEDILOL 12.5 MG TABLET PO SCH ×2 (08:27→17:07)
[2017-12-27] MEDS: CYCLOBENZAPRINE 10 MG TABLET PO SCH ×3 (08:27→17:07)
[2017-12-27] MEDS: PANTOPRAZOLE 40 MG TABLET.DR PO SCH (08:27)
[2017-12-27] MEDS: LACTOBACILLUS RHAMNOSUS GG 1 EACH CAP.SPRINK PO SCH ×2 (08:27→17:07)
[2017-12-27] MEDS: LEVOTHYROXINE SODIUM 25 MCG TABLET PO SCH (08:27)
[2017-12-27] MEDS: FUROSEMIDE 40 MG TABLET PO SCH ×2 (08:27→17:07)
[2017-12-27] MEDS: POLYETHYLENE GLYCOL 3350 17 GM POWD.PACK PO SCH (08:28)
[2017-12-27] MEDS: LOSARTAN POTASSIUM 50 MG TABLET PO SCH ×2 (08:28→21:00)
[2017-12-27] MEDS: AMLODIPINE BESYLATE 10 MG TABLET PO SCH (08:28)
[2017-12-27] MEDS: CALCIUM ACETATE 667 MG TABLET PO SCH ×3 (08:28→17:07)
[2017-12-27] MEDS: hydrALAZINE HCL 50 MG TABLET PO SCH ×3 (08:28→17:07)
[2017-12-27] MEDS: APIXABAN 2.5 MG TABLET PO SCH ×2 (08:31→21:22)
[2017-12-27] MEDS: CALCITRIOL 0.25 MCG CAPSULE PO SCH (08:31)
--- NOTE | 2017-12-27 13:00 | NUR ---
RN MS NOTES PT AWAKE, ALERT AND ORIENTED, PT SEEN BY SPEECH THERAPIST, PT EDUCATION PROVIDED REGARDING PROPER DIET TEXTURE AND RISK FOR ASPIRATION, VERBALIZED UNDERSTANDING.
[2017-12-27 16:00] VITALS: BP 123/93
[2017-12-27] MEDS: CEFTRIAXONE 1 G in IV D5W 50 ML IV SCH (18:15)
--- NOTE | 2017-12-27 18:46 | NUR ---
RN MS NOTES PT IN BED, ASLEEP, EASY TO AROUSE, ALERT AND ORIENTED, PM MEDS ADMINISTERED, IV ATB ADMINISTERED, PICC LINE AT LEFT GROIN INTACT AND PATENT, CALL LIGHT WITHIN REACH, PT ADMINISTERED HER OWN PERITONEAL DIALYSIS, TOLERATING WELL, ALL NEEDS ATTENDED.
--- NOTE | 2017-12-27 19:20 | NUR ---
MS RN OPENING NOTE Patient was see sleeping in bed but awoke easily to name. Patient is AAOx4, breathing on RA with no SOB, and no signs of acute distress. Neck brace is on and secure. Left femoral PICC line is clean, dry, and intact. Bed is low/locked, two side rails up, and call leblanc within reach. Patient has no immediate needs or concerns at this time. Will continue to monitor.
[2017-12-27 20:00] VITALS: BP 90/57
[2017-12-27] MEDS: SENNOSIDES 8.6 MG TABLET PO SCH (21:22)
--- NOTE | 2017-12-27 21:30 | NUR ---
MS RN NOTE - PD Patient performed peritoneal dialysis (PD) under my supervision. Patient states that she has been performing this independently for years. Patient and I wore masks during PD set-up; patient cleansed site with alcohol swab. 2000ml of solution went in and roughly 2000ml of clear yellow fluid was drained as output.
[2017-12-27] MEDS: HYDROMORPHONE INJ 2 MG/ML DISP.SYRIN IV PRN (21:51)
--- NOTE | 2017-12-27 21:51 | NUR ---
MS RN NOTE - Dilaudid Patient reported 8-9/10 neck and back pain (s/p surgery and osteomyelitis). I explained to the patient that she had orders for PO Meadow 10/325mg and IV Dilaudid 0.5mg; I educated the patient on the difference between both medications. Patient requested IV Dilaudid. 0.5mg IV Dilaudid was administered per orders. Will continue to monitor.
[2017-12-28] VITALS: BP 152/90
[2017-12-28] MEDS: oxyCODONE HCL SR 20MG TAB.SR.12H PO SCH ×2 (02:09→13:35)
[2017-12-28] MEDS: PANTOPRAZOLE 40 MG TABLET.DR PO SCH (06:33)
[2017-12-28] MEDS: LEVOTHYROXINE SODIUM 25 MCG TABLET PO SCH (06:33)
--- NOTE | 2017-12-28 07:07 | NUR ---
MS RN CLOSING NOTE Patient is AAOx4, breathing comfortably on RA with no SOB, and no signs of acute distress. Incisions on neck are covered with a dressing that is clean, dry, and intact. Neck brace is in place. Left femoral PICC line is intact and lumens are capped. Site for peritoneal dialysis is clean, dry, and intact. Patient ambulates to the bathroom as needed and is steady on her feet. Patient slept intermittently overnight, but remained in stable condition with no complications. Bed is low/locked, two side rails up, and call leblanc within reach. Patient care endorsed to day shift nurse.
--- NOTE | 2017-12-28 07:30 | NUR ---
RN MS NOTES PT AWAKE, SITTING IN BED, ALERT AND ORIENTED, DENIES PAIN, NOT IN DISTRESS, CALL LIGHT WITHIN REACH, PLAN OF CARE DISCUSSED WITH PT, VERBALIZED UNDERSTANDING, NEEDS ATTENDED.
[2017-12-28 07:37] LABS: CALCIUM, SERUM 9.2 mg/dL (8.5-10.1); CREATININE 10.1 mg/dL (0.6-1.3); POTASSIUM 4.4 mmol/L (3.5-5.1)
[2017-12-28 08:00] VITALS: BP 145/81
[2017-12-28] MEDS: SEVELAMER CARBONATE 0.8 GM POWD.PACK GT SCH ×3 (08:54→18:09)
[2017-12-28] MEDS: APIXABAN 2.5 MG TABLET PO SCH (09:02)
[2017-12-28] MEDS: CALCITRIOL 0.25 MCG CAPSULE PO SCH (09:02)
[2017-12-28] MEDS: LACTOBACILLUS RHAMNOSUS GG 1 EACH CAP.SPRINK PO SCH ×2 (09:02→18:14)
[2017-12-28] MEDS: FUROSEMIDE 40 MG TABLET PO SCH ×2 (09:02→18:09)
[2017-12-28] MEDS: CARVEDILOL 12.5 MG TABLET PO SCH ×2 (09:03→18:14)
[2017-12-28] MEDS: LOSARTAN POTASSIUM 50 MG TABLET PO SCH (09:03)
[2017-12-28] MEDS: AMLODIPINE BESYLATE 10 MG TABLET PO SCH (09:03)
[2017-12-28] MEDS: CALCIUM ACETATE 667 MG TABLET PO SCH ×3 (09:03→18:09)
[2017-12-28] MEDS: DOCUSATE SODIUM 250 MG CAPSULE PO SCH (09:03)
[2017-12-28] MEDS: POLYETHYLENE GLYCOL 3350 17 GM POWD.PACK PO SCH (09:04)
[2017-12-28] MEDS: hydrALAZINE HCL 50 MG TABLET PO SCH ×3 (09:04→18:14)
[2017-12-28] MEDS: CYCLOBENZAPRINE 10 MG TABLET PO SCH ×3 (09:05→18:09)
[2017-12-28 09:49] VITALS: BP 145/81
[2017-12-28 16:00] VITALS: BP 140/68
[2017-12-28] MEDS: CEFTRIAXONE 1 G in IV D5W 50 ML IV SCH (16:52)
[2017-12-28 18:14] VITALS: BP 140/68
--- NOTE | 2017-12-28 19:00 | NUR ---
RN MS NOTES PT AWAKE, ALERT AND ORIENTED, DENIES PAIN, NOT IN DISTRESS, PM MEDS GIVEN, DISCHARGE ORDER GIVEN BY DR. BONILLA, PT INFORMED, REPORT GIVEN TO [facility], PT REFUSED BELONGINGS TO BE ACCOUNTED, PERITONEAL DIALYSIS SUPPLY PROVIDED TO PT, NECK BRACE ON, LEFT VIA GUERNEY IN STABLE CONDITION.
== END 2017-12-28 18:45 | DRG 539 ==
LOC: TELE 16:44 → MED 12-25 08:59
PROVIDERS: ADMIT Internal Medicine; ATTEND Internal Medicine
PROC: 3E1M39Z Irrigation of Peritoneal Cavity using Dialysate, Percutaneous Approach (ICD-10-PCS; principal; 2017-12-25)
DX: M46.22 Osteomyelitis of vertebra, cervical region (principal); N18.6 End stage renal disease; I12.0 Hypertensive chronic kidney disease with stage 5 chronic kidney disease or end stage renal disease; J39.0 Retropharyngeal and parapharyngeal abscess; Q61.3 Polycystic kidney, unspecified; D63.8 Anemia in other chronic diseases classified elsewhere; E87.5 Hyperkalemia; Z91.19 Patient's noncompliance with other medical treatment and regimen; Z90.49 Acquired absence of other specified parts of digestive tract; E83.9 Disorder of mineral metabolism, unspecified; D72.829 Elevated white blood cell count, unspecified
CPT/HCPCS: 36415; 71045-TC; 80048-TC; 80053-TC; 80061-TC; 80202-TC; 83735-TC; 84100-TC; 85025-TC; 86704; 86705; 86706; 87081-TC; 87340; 90935-TC; 90945-TC; 92526; 92611-TC; A4217; J0696; J0885; J1170; J2270; J3370; J7030; J7060; Z7610

== ENCOUNTER 2018-08-03 12:29 | Inpatient (IN) | payer MEDICARE, MEDICAID ==
[~2018-08-03] VITALS: Ht 165.1 cm; Wt 61.7 kg
[~2018-08-03 12:29] MED LIST changes: -AMLO10TA2 PO; +AMLO10TA7 PO; -CAPS42.57 TP; +CEFT2VIA64 IV; +CLON0.1T PO; -HYDR-4075 PO; +HYDR-4354 PO; +HYDR-4384 PO; +HYDR100T27 PO; -LOSA50TA21 PO; +LOSA50TA39 PO; -NUT.237L67 PO; +ONDA4VIA52 IVP; -OXYC-128 PO; +POLY255P19 PO; -POLY255P2 PO; +VANC1VIA2 IV
--- NOTE | 2018-08-03 12:48 | NUR ---
PT TO ER BED 11. AAOX4. NAD. DENIES OF CP, NO SOB, NO PAIN. C/O HIGH BP PT STATES THAT HER BP PRIOR TO GOING TO ER WAS IN 215. AT BEDSIDE AWAITING ORDERS
[2018-08-03] MEDS ORDERED: hydrALAZINE HCL IV 20 MG VIAL ONE (13:10)
--- NOTE | 2018-08-03 13:21 | NUR ---
XRAY AT BEDSIDE
--- NOTE | 2018-08-03 13:27 | NUR ---
CAME IN WITH PICC LINE ON L THIGH 2 LUMENS. NO DRESSING COVER, NO SWELLING, NO REDNESS, NO DISCHRGE FROM SITE. FLUSHED WITH NS, PATENT.
[2018-08-03] MEDS ORDERED: hydrALAZINE HCL IV 20 MG VIAL IV ONE (13:30)
[2018-08-03 13:33] LABS: BASOPHILS % (AUTO) 0.6 % (0.0-2.0); EOSINOPHILS % (AUTO) 2.9 % (0.0-6.0); HEMATOCRIT 25 % (33-45); HEMOGLOBIN 8.4 g/dL (11.5-14.8); LYMPHOCYTES % (AUTO) 14.9 % (20.0-44.0); MEAN CORPUSCULAR HGB CONC 33 g/dl (31.0-36.0); MEAN CORPUSCULAR VOLUME 94 fL (82-100); MONOCYTES # (AUTO) 0.6 /CMM (0.1-1.30); MONOCYTES % (AUTO) 9.1 % (2.0-12.0); NEUTROPHILS # (AUTO) 4.6 /CMM (1.8-8.9); NEUTROPHILS % (AUTO) 72.5 % (43.0-81.0); PLATELET COUNT (AUTO) 158 /CMM (150-450); RED BLOOD CELL COUNT(AUTO) 2.68 MIL/uL (4.0-5.2); WHITE BLOOD COUNT (AUTO) 6.4 K/uL (4.3-11.0)
[2018-08-03 13:50] LABS: CALCIUM, SERUM 8.8 mg/dL (8.5-10.1)
[2018-08-03 13:51] LABS: POTASSIUM 6.8 mmol/L (3.5-5.1)
[2018-08-03 13:52] LABS: CREATININE 16.6 mg/dL (0.6-1.3)
[2018-08-03] MEDS ORDERED: PROP40TA7 PO (14:17)
[2018-08-03] MEDS ORDERED: ONDA4TAB5 PO (14:17)
[2018-08-03] MEDS ORDERED: FUROSEMIDE 40 MG/4 ML VIAL IV ONE (14:30)
[2018-08-03] MEDS ORDERED: SODIUM POLYSTYRENE SULFONATE 15 G/60 ML BOTTLE PO ONE (14:30)
[2018-08-03] MEDS ORDERED: SODIUM BICARBONATE SYR 50 MEQ/50 ML DISP.SYRIN IV ONE (14:30)
[2018-08-03] MEDS ORDERED: FUROSEMIDE 20 MG/2 ML VIAL ONE (14:34)
[2018-08-03] MEDS ORDERED: SODIUM POLYSTYRENE SULFONATE 15 G/60 ML BOTTLE ONE (14:35)
[2018-08-03] MEDS ORDERED: SODIUM BICARBONATE SYR 50 MEQ/50 ML DISP.SYRIN ONE (14:35)
[2018-08-03] MEDS ORDERED: HYDROCODONE/APAP 5/325MG 1 EACH TABLET ONE (14:57)
[2018-08-03] MEDS ORDERED: CLONIDINE HCL 0.1 MG TABLET ONE (14:57)
[2018-08-03] MEDS ORDERED: CLONIDINE HCL 0.1 MG TABLET PO ONE (15:00)
[2018-08-03] MEDS ORDERED: HYDROCODONE/APAP 5/325MG 1 EACH TABLET PO ONE (15:00)
--- NOTE | 2018-08-03 15:20 | NUR ---
ADMIT TO 120-1 YIN DX RENAL FAILURE, HYPERKALEMIA, HYPERTENSION ACCEPTING SHANICE DE LEON
[2018-08-03] MEDS ORDERED: Z GUARD REMEDY 2 OZ OINT TP PRN (16:00)
[2018-08-03] MEDS ORDERED: ACETAMINOPHEN 325 MG TABLET PO PRN (16:00)
[2018-08-03] MEDS ORDERED: ZOLPIDEM TARTRATE 5 MG TABLET PO PRN (16:00)
[2018-08-03] MEDS ORDERED: ONDANSETRON HCL/PF 4 MG/2 ML VIAL IVP PRN (16:00)
[2018-08-03] MEDS ORDERED: MAGNESIUM HYDROXIDE 30 ML UDC PO PRN (16:00)
[2018-08-03] MEDS ORDERED: MAG HYDROX/AL HYDROX/SIMETH 30 ML UDC PO PRN (16:00)
--- NOTE | 2018-08-03 16:02 | NUR ---
US AT BEDSIDE
--- NOTE | 2018-08-03 16:55 | NUR ---
PT TO RM 120-1. CARIN GILLESPIE RECEIVED PT. BEDSIDE REPORT GIVEN.
--- NOTE | 2018-08-03 16:59 | NUR ---
RN YIN NOTES BEDSIDE REPORT GIVEN FROM ED. PT ARRIVED VIA GURNEY AMBULATORY AND ABLE TO WALK TO BED PATIENT A/O X4 C/O PAIN TO BACK VS T 98.5 HR 79 O2 98% ON ROOM AIR BP 174/91 RR 18. NO C/O PAIN OR RESPIRATORY DISTRESS PICC DOUBLE LUMEN TO LEFT THIGH PATIENT STATES WAS INSERTED 1 YEAR AGO. PATIENT DOES PERITONEAL DIALYSIS @ FACILITY @2300 08/02. SKIN INTACT NO PHOTOS TAKEN ON TELE MONITOR ORIENTED TO ROOM AND CALL SYSTEM. SAFETY PRECAUTIONS IN PLACE BED IN LOW POSITION AWAITING ORDERS FROM DR GROSS.
--- NOTE | 2018-08-03 19:28 | NUR ---
RN YIN NOTES REPORT ENDORSED TO NOC
[2018-08-03 20:00] VITALS: BP 161/90
[2018-08-04] VITALS: BP 152/94
[2018-08-04] MEDS: HYDROCODONE/APAP 5/325MG 1 EACH TABLET PO PRN ×3 (00:41→21:33)
[2018-08-04 04:00] VITALS: BP 160/99
--- NOTE | 2018-08-04 07:29 | NUR ---
RN YIN NOTES BEDSIDE REPORT GIVEN PATIENT SLEEPING ABLE TO AROUSE WITH VOICE AND TOUCH A/OX4 NO SIGNS OR SYMPTOMS OF RESPIRATORY DISTRESS OR ACUTE PAIN NOTED. SPOKE WITH DR MEJÍA IN REGARDS TO MED RECON AND DIET ORDERS PLACED. NO PERIPHERAL LINE IV ACCESS. PICC LINE TO LEFT THIGH DOUBLE LUMEN PATENT. PERITONEAL LINE IN ABDOMEN CLEAN WITH NO SIGNS OR SYMPTOMS OF INFECTION. SAFETY PRECAUTIONS IN PLACE BED IN LOW POSITION CALL LIGHT WITHIN REACH. WILL CONT TO MONITOR
[2018-08-04 07:55] LABS: BASOPHILS % (AUTO) 0.6 % (0.0-2.0); EOSINOPHILS % (AUTO) 4.3 % (0.0-6.0); HEMATOCRIT 23 % (33-45); HEMOGLOBIN 7.7 g/dL (11.5-14.8); MEAN CORPUSCULAR HGB CONC 34 g/dl (31.0-36.0); MEAN CORPUSCULAR VOLUME 93 fL (82-100); MONOCYTES # (AUTO) 0.7 /CMM (0.1-1.30); MONOCYTES % (AUTO) 14.4 % (2.0-12.0); NEUTROPHILS # (AUTO) 2.9 /CMM (1.8-8.9); NEUTROPHILS % (AUTO) 60.7 % (43.0-81.0); PLATELET COUNT (AUTO) 156 /CMM (150-450); RED BLOOD CELL COUNT(AUTO) 2.48 MIL/uL (4.0-5.2); WHITE BLOOD COUNT (AUTO) 4.8 K/uL (4.3-11.0)
[2018-08-04 08:00] VITALS: BP 164/95
[2018-08-04 08:11] LABS: CALCIUM, SERUM 8.4 mg/dL (8.5-10.1); MAGNESIUM 2.4 mg/dL (1.8-2.4)
[2018-08-04 08:17] LABS: CREATININE 16.6 mg/dL (0.6-1.3); PHOSPHORUS 8.5 mg/dL (2.5-4.9)
[2018-08-04 08:34] LABS: THYROID STIMULATING HORMONE 4.128 uIU/mL (0.358-3.74)
[2018-08-04] MEDS: SEVELAMER CARBONATE 800 MG TABLET PO SCH ×3 (08:54→17:07)
[2018-08-04] MEDS: AMLODIPINE BESYLATE 10 MG TABLET PO SCH (08:54)
[2018-08-04] MEDS: DOCUSATE SODIUM 250 MG CAPSULE PO SCH (08:54)
[2018-08-04] MEDS: CARVEDILOL 12.5 MG TABLET PO SCH ×2 (08:54→17:08)
[2018-08-04] MEDS: LOSARTAN POTASSIUM 50 MG TABLET PO SCH ×2 (08:55→21:07)
[2018-08-04] MEDS: FUROSEMIDE 40 MG TABLET PO SCH ×2 (08:55→17:07)
[2018-08-04] MEDS: hydrALAZINE HCL 50 MG TABLET PO SCH ×3 (08:55→17:08)
[2018-08-04] MEDS: APIXABAN 2.5 MG TABLET PO SCH ×2 (11:12→17:08)
[2018-08-04 12:00] VITALS: BP 140/78
--- NOTE | 2018-08-04 12:55 | NUR ---
Social service consult requested by patient. Pt. is a 52 year old female who was admitted to [facility] for renal failure/hyperkalemia. SW met with pt. at bedside. Pt. was laying down in her bed initially, but sat up for consultation. Pt. looks disheveled. Pt. is alert and oriented x3. Pt. currently resides at [place] [address]. Pt.s emergency contact is her son Zeus Hurtado . Pt. states that she has applied for SSDI and was approved but is still waiting to receive her disability check. Pt. reports several complaints regarding her current prison facility regarding care. Pt. has reported to her local ombudsman regarding her complaints as well. Pt. appears to be very dissatisfied with her facility and would like to speak with [employer] regarding her complaints. WOODY notified [employer] with the aforementioned information. No other services are requested at this time. WOODY is available if needed.
[2018-08-04 16:00] VITALS: BP 164/96
--- NOTE | 2018-08-04 18:41 | NUR ---
RN YIN NOTES PATIENT AWAKE IN BED A/OX4 NO SIGNS OR SYMPTOMS OF RESPIRATORY DISTRESS OR ACUTE PAIN NOTED NORCO GIVE 1X FOR LOWER BACK PAIN. PATIENT ADMINISTERED OWN PERITONEAL DIALYSIS INTAKE OF 5100 ML OUTPUT OF 5100 ML PER PATIENT. APPETITE FAIR. NO BOWEL MOVEMENT FOR COLLECTION. NO PERIPHERAL LINE IV ACCESS. PICC LINE TO LEFT THIGH DOUBLE LUMEN PATENT. PERITONEAL LINE IN ABDOMEN CLEAN WITH NO SIGNS OR SYMPTOMS OF INFECTION. SAFETY PRECAUTIONS IN PLACE BED IN LOW POSITION CALL LIGHT WITHIN REACH
--- NOTE | 2018-08-04 19:13 | NUR ---
RN YIN CLOSING NOTES REPORT ENDORSED TO NOC
--- NOTE | 2018-08-04 19:15 | NUR ---
TD RN NOTES RECEIVED PT ON BED, A/OX 4. ON ROOM AIR NO RESPIRATORY DISTRESS NOTE. ON TELE MONITOR SR. IV ACCESS LEFT FEMORAL PICC PATENT AND INTACT. HEAD OF BED ELEVATED. SIDE RAILS UP. CALL LIGHT WITHIN REACH. BED ALARM ON. WILL CONTINUE TO MONITOR PT CLOSELY.
[2018-08-04 20:00] VITALS: BP 140/81
[2018-08-04] MEDS: SENNOSIDES 8.6 MG TABLET PO SCH (21:07)
--- NOTE | 2018-08-04 23:53 | NUR ---
Met with patient, she is alert and oriented. She resides at [facility] [address] [facility] [address] TEL: [phone]. She is ambulatory and independent with adl's. She is on peritoneal dialysis daily at the facility. Her renal doctor is Dr. Fernando Tellez at [facility] [phone]. Current dc plan is to return to [facility] when discharge. Addendum: 08/04/18 at 2353 by VANGIE REESE RN Amended: Links added.
[2018-08-05] VITALS: BP 153/85
[2018-08-05 04:00] VITALS: BP 150/84
[2018-08-05 05:09] LABS: T3, FREE 1.6 pg/mL (2.0-4.4)
[2018-08-05 06:50] LABS: BASOPHILS % (AUTO) 0.5 % (0.0-2.0); EOSINOPHILS % (AUTO) 4.9 % (0.0-6.0); HEMATOCRIT 24 % (33-45); LYMPHOCYTES # (AUTO) 1.3 /CMM (0.8-4.8); MEAN CORPUSCULAR HGB CONC 34 g/dl (31.0-36.0); MEAN CORPUSCULAR VOLUME 94 fL (82-100); MONOCYTES # (AUTO) 0.8 /CMM (0.1-1.30); MONOCYTES % (AUTO) 13.4 % (2.0-12.0); NEUTROPHILS # (AUTO) 3.6 /CMM (1.8-8.9); NEUTROPHILS % (AUTO) 59.2 % (43.0-81.0); PLATELET COUNT (AUTO) 154 /CMM (150-450); RED BLOOD CELL COUNT(AUTO) 2.52 MIL/uL (4.0-5.2); WHITE BLOOD COUNT (AUTO) 6.1 K/uL (4.3-11.0)
--- NOTE | 2018-08-05 07:17 | NUR ---
TD RN NOTES NO ACUTE CHANGES NOTED DURING THE SHIFT. ENDORSE ABOUT PERITONEAL DIALYSIS BAG NEEDED . PROVIDED COMFORT AND SAFETY. WILL ENDORSE TO THE AM NURSE FOR CONTINUITY OF CARE.
[2018-08-05 07:28] LABS: ALBUMIN 2.2 g/dL (3.4-5.0); BILIRUBIN,TOTAL 0.9 mg/dL (0.2-1.0); CALCIUM, SERUM 8.1 mg/dL (8.5-10.1); MAGNESIUM 2.1 mg/dL (1.8-2.4); TOTAL PROTEIN, SERUM 5.3 g/dL (6.4-8.2)
--- NOTE | 2018-08-05 07:30 | NUR ---
RN notes Received patient in bed, awake, alert and orientedx4, able to make needs known. not on any form of distress, on room air, sating fine, sinus rhythm on the monitor with hr on the 70's. PICC line on the left femoral, in place and intact. Patient encourage to call for assistance and help. call light placed within reach. safety measures observed and maintained. srx2 raised, bed low and locked position, will continue to monitor patient closely.
[2018-08-05 08:00] VITALS: BP 163/91
[2018-08-05 08:17] LABS: CREATININE 15.4 mg/dL (0.6-1.3)
[2018-08-05 08:19] LABS: PHOSPHORUS 8.5 mg/dL (2.5-4.9)
[2018-08-05] MEDS: SEVELAMER CARBONATE 800 MG TABLET PO SCH ×3 (08:55→17:26)
[2018-08-05] MEDS: DOCUSATE SODIUM 250 MG CAPSULE PO SCH (08:55)
[2018-08-05] MEDS: PANTOPRAZOLE 40 MG TABLET.DR PO SCH (08:55)
[2018-08-05] MEDS: AMLODIPINE BESYLATE 10 MG TABLET PO SCH (08:56)
[2018-08-05] MEDS: hydrALAZINE HCL 50 MG TABLET PO SCH ×3 (08:56→17:25)
[2018-08-05] MEDS: FUROSEMIDE 40 MG TABLET PO SCH ×2 (08:57→17:25)
[2018-08-05] MEDS: CARVEDILOL 12.5 MG TABLET PO SCH ×2 (08:57→17:26)
[2018-08-05] MEDS: APIXABAN 2.5 MG TABLET PO SCH ×2 (08:57→17:25)
[2018-08-05] MEDS: LOSARTAN POTASSIUM 50 MG TABLET PO SCH ×2 (08:58→21:42)
[2018-08-05] MEDS: LEVOTHYROXINE SODIUM 25 MCG TABLET PO SCH (09:01)
[2018-08-05] MEDS: HYDROCODONE/APAP 5/325MG 1 EACH TABLET PO PRN ×2 (12:31→18:50)
[2018-08-05 16:00] VITALS: BP 136/79
--- NOTE | 2018-08-05 19:16 | NUR ---
rn notes endorsed for continuity of care. not on any form of distress. no acute changes within the shift. all nursing needs attended and met. safety measures in place at all times. call light within reach
[2018-08-05 20:00] VITALS: BP 139/81
[2018-08-05] MEDS: SENNOSIDES 8.6 MG TABLET PO SCH (21:42)
--- NOTE | 2018-08-06 04:21 | NUR ---
MS RN NOTES PT REFUSE VITAL SIGNS TAKING. PER PT SHE WANTS TO REST.
[2018-08-06 06:17] LABS: BASOPHILS % (AUTO) 0.4 % (0.0-2.0); EOSINOPHILS % (AUTO) 3.9 % (0.0-6.0); HEMATOCRIT 26 % (33-45); HEMOGLOBIN 8.6 g/dL (11.5-14.8); LYMPHOCYTES # (AUTO) 1.4 /CMM (0.8-4.8); LYMPHOCYTES % (AUTO) 21.2 % (20.0-44.0); MEAN CORPUSCULAR HGB CONC 33 g/dl (31.0-36.0); MEAN CORPUSCULAR VOLUME 95 fL (82-100); MONOCYTES # (AUTO) 0.9 /CMM (0.1-1.30); MONOCYTES % (AUTO) 13.9 % (2.0-12.0); NEUTROPHILS % (AUTO) 60.6 % (43.0-81.0); PLATELET COUNT (AUTO) 156 /CMM (150-450); RED BLOOD CELL COUNT(AUTO) 2.73 MIL/uL (4.0-5.2); WHITE BLOOD COUNT (AUTO) 6.6 K/uL (4.3-11.0)
[2018-08-06 06:31] LABS: CALCIUM, SERUM 7.9 mg/dL (8.5-10.1); PHOSPHORUS 7.7 mg/dL (2.5-4.9); POTASSIUM 4.9 mmol/L (3.5-5.1)
[2018-08-06 06:33] LABS: CREATININE 14.9 mg/dL (0.6-1.3)
--- NOTE | 2018-08-06 07:16 | NUR ---
MS RN NOTES NO ACUTE CHANGES NOTED DURING THE SHIFT. PROVIDED COMFORT AND SAFETY. WILL ENDORSE TO THE AM NURSE FOR CONTINUITY OF CARE.
[2018-08-06 08:00] VITALS: BP_SYST 137; BP_SYST 152; BP_DIAS 54; BP_DIAS 78
--- NOTE | 2018-08-06 08:00 | NUR ---
MS RN NOTES RECEIVED PT IN BED ALERT AND ORIENTED ON ROOM AIR. NO SOB RESPIRATION EVEN AND UNLABORED. ABLE TO FEED HERSELF. ABD NON TENDER. BED LOCKED AND LOW POSITION. CALL LIGHT WITHIN REACHED. SAFETY MEASURES OBSERVED. PLAN OF CARE DISCUSSED WITH PATIENT. C/O PAIN BACK 12/26 NORCO WAS GIVEN ORDERED. Addendum: 08/06/18 at 0943 by WILBUR CHOI RN LEFT LOWER ABD PERITONEAL DIALYSIS TUBE IN PLACE. UNABLE TO RECHECK PICC LINE PT REFUSED EXPLAINED RISK BENEFITS BUT STILL REFUSED WILL MONOTOR CLOSELY. PAIN AT THE MOMENT IS 05/28. B/P 132/79 HR 85.
[2018-08-06] MEDS: FUROSEMIDE 40 MG TABLET PO SCH (08:15)
[2018-08-06] MEDS: SEVELAMER CARBONATE 800 MG TABLET PO SCH ×2 (08:16→13:00)
[2018-08-06] MEDS: LOSARTAN POTASSIUM 50 MG TABLET PO SCH (08:16)
[2018-08-06] MEDS: PANTOPRAZOLE 40 MG TABLET.DR PO SCH (08:16)
[2018-08-06] MEDS: DOCUSATE SODIUM 250 MG CAPSULE PO SCH (08:17)
[2018-08-06] MEDS: AMLODIPINE BESYLATE 10 MG TABLET PO SCH (08:17)
[2018-08-06] MEDS: APIXABAN 2.5 MG TABLET PO SCH (08:17)
[2018-08-06] MEDS: HYDROCODONE/APAP 5/325MG 1 EACH TABLET PO PRN ×2 (08:24→12:54)
[2018-08-06] MEDS: LEVOTHYROXINE SODIUM 25 MCG TABLET PO SCH (08:24)
[2018-08-06] MEDS: CARVEDILOL 12.5 MG TABLET PO SCH ×2 (08:27→09:48)
[2018-08-06] MEDS ORDERED: LEVO50TA8 PO (08:41)
[2018-08-06] MEDS: hydrALAZINE HCL 50 MG TABLET PO SCH ×2 (09:47→13:00)
[2018-08-06 09:48] VITALS: BP 132/79
--- NOTE | 2018-08-06 10:30 | NUR ---
PT SEEN AND EVALUATED BY DR. CAMARILLO. AWARE OF THE BUN AND CREATININE AND PT IS OK TO GO TO NURSING HOME FACILITY. OK TO REMOVE PICC LINE. WILL FOLLOW UP.
--- NOTE | 2018-08-06 11:29 | NUR ---
RN NOTES CALLED HALFWAY FACILITY REPORT GIVEN TO CARIN PATTERSON. AWAITING FOR AMBULANCE.
--- NOTE | 2018-08-06 13:22 | NUR ---
MS RN NOTES AMBULANCE ARRIVED REPORT GIVEN UNABLE TO REMOVE LEFT FEMORAL PICC LINE. PT STATE PICC LINE IS ABOUT 1 YEAR. CALLED ARAVIND GRANT RN,DNP EXAMINED AND SEEN PATIENT AND ALSO UNABLE TO REMOVE LINE AT THIS TIME. HE CALLED DR. HUMPHREY VASCULAR DOCTOR. STATED THAT IT IS OK TO CHANGE DRESSING BUT DO NOT REMOVE THE LINE. IT IS EPITHELIZED INSIDE. PER DOCTOR KAM AND ARAVIND GRANT OK TO DISCHARGE PATIENT TO [facility] HOME [facility]. WE WILL INFORM DR. RABIA BARNES. PICC LINE INTACT AND NO BLEEDING. NORCO WAS GIVEN PRIOR TO DISCHARGE FOR PAIN. WENT TO SNF IN STABLE CONDITION. BELONGING CHECKED.
--- NOTE | 2018-08-06 13:40 | NUR ---
MS RN NOTE DR CAMARILLO NOTIFIED ABOUT PICC LINE UNABLE TO REMOVE OK TO DISCHARGE PATIENT AND LEAVE PICC LINE IN PLACE
== END 2018-08-06 13:40 | DRG 640 ==
LOC: ER 12:32 → TELE-TD 16:00 → MEDSG1 08-05 09:56
PROVIDERS: ADMIT Internal Medicine; ATTEND Internal Medicine
PROC: 3E1M39Z Irrigation of Peritoneal Cavity using Dialysate, Percutaneous Approach (ICD-10-PCS; principal; 2018-08-03)
PROC: 3E1M39Z Irrigation of Peritoneal Cavity using Dialysate, Percutaneous Approach (ICD-10-PCS; 2018-08-04)
PROC: 3E1M39Z Irrigation of Peritoneal Cavity using Dialysate, Percutaneous Approach (ICD-10-PCS; 2018-08-05)
PROC: 3E1M39Z Irrigation of Peritoneal Cavity using Dialysate, Percutaneous Approach (ICD-10-PCS; 2018-08-06)
DX: E87.5 Hyperkalemia (principal); N18.6 End stage renal disease; I12.0 Hypertensive chronic kidney disease with stage 5 chronic kidney disease or end stage renal disease; Q61.3 Polycystic kidney, unspecified; E44.0 Moderate protein-calorie malnutrition; I16.0 Hypertensive urgency; Z79.01 Long term (current) use of anticoagulants; Z99.2 Dependence on renal dialysis; E03.9 Hypothyroidism, unspecified; D63.8 Anemia in other chronic diseases classified elsewhere; D50.0 Iron deficiency anemia secondary to blood loss (chronic); Z91.15 Patient's noncompliance with renal dialysis; E88.09 Other disorders of plasma-protein metabolism, not elsewhere classified; Z68.22 Body mass index [BMI] 22.0-22.9, adult
CPT/HCPCS: 36415; 71045-TC; 80048-TC; 80053-TC; 80061-TC; 82728-TC; 83540-TC; 83735-TC; 84100-TC; 84439-TC; 84443-TC; 84481; 85025-TC; 85730-TC; 86706; 86803; 87081-TC; 87340; 90935-TC; A6402; G0378; J0360; J1940; J3490